=== PATIENT | male | born 1985 | race African-American/Black ===

== ENCOUNTER 2022-02-12 01:31 | Emergency (ER) | payer SELFPAY ==
[~2022-02-12] VITALS: Ht 172.7 cm; Wt 86.2 kg
--- NOTE | 2022-02-12 01:35 | NUR ---
bibra c/o general body pain for the past 24 hours. PATIENT IS AAOX4. ABLE TO MAKE NEEDS KNOWN. PT HAVING HARD TIME MOVING BECAUSE OF PAIN THAT IS SCALE OF 10/10. PLACED COMFORTABLY IN BED. VITALS CHECKED.
[2022-02-12] MEDS ORDERED: KETOROLAC TROMETHAMINE INJ 30 MG/ML VIAL IV ONE (02:00)
[2022-02-12] MEDS ORDERED: IV NS 0.9% 500 ML BAG IV ONE (02:00)
[2022-02-12] MEDS ORDERED: KETOROLAC TROMETHAMINE INJ 30 MG/ML VIAL ONE (02:02)
--- NOTE | 2022-02-12 02:10 | NUR ---
IV CANNULA G20 INSERTED ON RIGHT AC. BLOOD DRAWN AND SENT TO LAB
--- NOTE | 2022-02-12 02:19 | NUR ---
CALLED LAB TO PROVIDE SWABS FOR COVID AND INFLUENZA
[2022-02-12 02:31] LABS: BASOPHILS % (AUTO) 0.4 % (0.0-2.0); EOSINOPHILS % (AUTO) 2.1 % (0.0-6.0); HEMATOCRIT 49 % (39-51); HEMOGLOBIN 16.8 g/dL (13.5-17.5); LYMPHOCYTES # (AUTO) 1.5 K/uL (0.8-4.8); LYMPHOCYTES % (AUTO) 23.9 % (20.0-44.0); MEAN CORPUSCULAR HGB CONC 35 g/dl (31.0-36.0); MEAN CORPUSCULAR VOLUME 88 fL (80-96); MONOCYTES # (AUTO) 0.8 K/uL (0.1-1.30); MONOCYTES % (AUTO) 12.3 % (2.0-12.0); NEUTROPHILS # (AUTO) 3.8 K/uL (1.8-8.9); NEUTROPHILS % (AUTO) 61.3 % (43.0-81.0); PLATELET COUNT (AUTO) 138 K/uL (150-450); WHITE BLOOD COUNT (AUTO) 6.2 K/uL (4.3-11.0)
--- NOTE | 2022-02-12 02:34 | NUR ---
URINE SPECIMEN SENT TO LAB
[2022-02-12 02:53] LABS: BILIRUBIN,URINE NEGATIVE (NEGATIVE); COLOR,URINE YELLOW (YELLOW); LEUKOCYTE ESTERASE ,URINE NEGATIVE (NEGATIVE); NITRITE, URINE NEGATIVE (NEGATIVE); PROTEIN,URINE NEGATIVE (NEGATIVE); UGLUCOSE NEGATIVE (NEGATIVE); UROBILINOGEN,URINE 0.2 EU/dL (0.2)
[2022-02-12 02:56] LABS: CALCIUM, SERUM 8.6 mg/dL (8.5-10.1); CREATININE 1.2 mg/dL (0.6-1.3); POTASSIUM 3.9 mmol/L (3.5-5.1)
--- NOTE | 2022-02-12 02:56 | NUR ---
XRAY DONE AT BEDSIDE
[2022-02-12 03:03] LABS: ALBUMIN 3.7 g/dL (3.4-5.0); BILIRUBIN,DIRECT 0.1 mg/dL (0.0-0.2); BILIRUBIN,TOTAL 0.4 mg/dL (0.2-1.0); TOTAL PROTEIN, SERUM 7.2 g/dL (6.4-8.2)
--- NOTE | 2022-02-12 04:49 | NUR ---
Patient discharged to home in stable condition. Written and verbal after care instructions given. Patient verbalizes understanding of instruction.
--- NOTE | 2022-02-12 04:49 | NUR ---
IV CANNULA REMOVED
[2022-02-12 04:50] VITALS: BP 147/88
== END 2022-02-12 04:50 | disposition home or self-care (01) ==
LOC: ER 01:43
DX: B34.9 Viral infection, unspecified (principal); M79.10 Myalgia, unspecified site; Z20.822 Contact with and (suspected) exposure to COVID-19; F90.9 Attention-deficit hyperactivity disorder, unspecified type; Z79.899 Other long term (current) drug therapy; R03.0 Elevated blood-pressure reading, without diagnosis of hypertension
CPT/HCPCS: 99284; 96374; 96361; 87426; 87804; 85025; 80048; 82550; 83690; 80076; 81003; 36415; 85730; 82553; J1885; J7040; C9803